=== PATIENT | female | born 1940 | race Caucasian/White ===

== ENCOUNTER → 2017-12-22 19:28 | Outpatient (CLI) | payer MEDICARE ==
[~2017-12-22 19:28] MED LIST: ALEVE220 MG PO; CRANBERRY 400 M1 TA1 PO; LINZESS145 MCG PO; MIRALAX17 GM PO; MULTIPLE VITAMI1 TA1 PO; NORVASC2.5 MG PO; PERCOCET 5-3251 TAB PO; PRAVACHOL20 MG PO; XALATAN 0.0052.5 ML EACH EYE
[2018-02-02 11:04] VITALS: BMI 28.9
== END | disposition home or self-care (01) ==
LOC: D.MAMMO 09:15
DX: Z12.31 Encounter for screening mammogram for malignant neoplasm of breast (principal)

== ENCOUNTER 2018-02-01 11:30 | Inpatient (IN) | payer MEDICARE ==
[~2018-02-01] VITALS: Ht 172.7 cm; Wt 86.4 kg
--- NOTE | ~2018-02-01 | OP ---
PATIENT NAME: SUJATA JO MEDICAL RECORD: [id number] :38 LOCATION:Mg D.1218 ADMISSION DATE:02/02/18 SURGEON: WILIAN HARTMAN MD DATE OF OPERATION: 02/02/2018 PREOPERATIVE DIAGNOSIS: Uterovaginal prolapse. POSTOPERATIVE DIAGNOSIS: Uterovaginal prolapse. PROCEDURE PERFORMED: 1. Diagnostic laparoscopy. 2. Laparoscopic assisted vaginal hysterectomy with bilateral salpingo-oophorectomy. 3. Vaginal vault suspension. 4. Cystoscopy. SURGEON: Wilian Hartman MD BACK PADDER: Jorge Boyle. ANESTHESIOLOGIST: Nasir Poe MD ANESTHESIA: General anesthetic with endotracheal intubation. FINDINGS: Uterus is unremarkable along with tubes and ovaries internally. The uterus completely prolapses beyond the vaginal introitus. Bladder mucosa was unremarkable and at the time of cystoscopy, good efflux from ureteral orifices. SPECIMENS: Uterus, tubes, and ovaries. SPECIMEN DISPOSITION: Pathology. ESTIMATED BLOOD LOSS: Less than or equal to 300 cc. FLUIDS: 1300 cc of lactated Ringer's. URINE OUTPUT: 75-100 cc of clear urine. COMPLICATIONS: None. DRAINS: Mondragon to gravity. 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 The patient has been counseled in regards to hysterectomy and need for vault suspension. The patient understands limitations and risk of procedure. DESCRIPTION OF PROCEDURE: After informed consent was assured, the patient was taken to the operating room where anesthetic was obtained without difficulty. The patient is now prepped and draped in the usual sterile fashion. The uterus is reduced with a sponge stick. Attention was directed to the abdomen where a trocar was inserted into the umbilicus and a pneumoperitoneum developed. Accessory ports were placed in the right and left lower quadrant. The patient was placed in Trendelenburg position. Bladder was drained. The bowel swept free of the pelvis. The right ovary was elevated and using coagulation cutter, the infundibulopelvic ligament is coagulated and . The dissection was OPERATIVE REPORT [id number] SUJATA JO carried out underneath the ovary across the round ligament and the bladder flap was developed to the midline. This is continued on the contralateral side. The left ovary now being elevated has its attachment to the infundibulopelvic ligament, coagulated, and . The dissection was carried out underneath the ovary across the round ligaments and the anterior leaf of the broad ligament was opened. The dissection of the bladder flap was carried out to the midline. Attention was now directed vaginally and after positioning the legs, speculum was introduced. The cervix was grasped with Black tenaculums and incised with Bovie cautery. The posterior cul-de-sac was entered sharply. The long-billed weighted speculum was introduced after the peritoneum is plicated to the mucosa. Using [place] clamps, the uterosacral ligaments were shortened and mobilized with scissors. A stitch was placed on both right and left uterosacral complexes. Attention was directed anteriorly where the dissection frees the bladder from the cervix and the anterior space was entered. The remaining portions of the broad ligament were clamped, cut, and tied and uterus along with tubes and ovaries were removed. The anterior peritoneum is attached to the vaginal mucosa with 3-0 Vicryl. Inspection revealed adequate hemostasis. A long Allis with the ligaments being palpated, long Allis is inserted and the uterosacral ligaments were grasped on left and right side of 3-4 cm from the vaginal opening. A complex of uterosacral tissue was built, thus is obtained by plicating the ligament to the midline with Ethibond. After this bundle of tissue was created, the vaginal cuff was closed in a horizontal fashion incorporating the vaginal mucosa to the ligament complex. In this way, there is apical support attached to the vaginal cuff. After closure of the vaginal cuff, cystoscopy has been performed and with the patient having received methylene blue, both ureteral orifices were easily identified. The vaginal mucosa is unremarkable and free of trauma. Mondragon catheter was inserted and bladder drained. The packing is now placed. Sponge, lap, and needle counts were correct x 2. As pneumoperitoneum is reestablished, inspection of the operative field reveals adequate hemostasis. The trocars were removed and the skin was reapproximated with a subcuticular stitch and Dermabond. TRANSINT:[id number] Voice Confirmation ID: [id number] DOCUMENT ID: [id number] WILIAN HARTMAN MD at 1158 CC: [id number] DICTATION DATE: 02/02/18 1015 INFORMATION TECHNOLOGY COORDINATOR: 02/02/18 1259 ADM IN [facility] [address] [place] [id number]
[2018-02-01] MEDS ORDERED: PRAVACHOL20 MG PO (11:44)
[2018-02-01] MEDS ORDERED: NORVASC2.5 MG PO (11:44)
[2018-02-01] MEDS ORDERED: CRANBERRY 400 M1 TA1 PO (11:45)
[2018-02-01] MEDS ORDERED: MULTIPLE VITAMI1 TA1 PO (11:45)
[2018-02-01] MEDS ORDERED: ALEVE220 MG PO (11:45)
[2018-02-01] MEDS ORDERED: MIRALAX17 GM PO (11:46)
[2018-02-01] MEDS ORDERED: XALATAN 0.0052.5 ML EACH EYE (11:46)
[2018-02-01] MEDS ORDERED: LINZESS145 MCG PO (11:46)
[2018-02-01 13:04] LABS: CALC OSMOLALITY 280 mosm/kg (275-300); CALCIUM 9.3 mg/dL (8.5-10.1); CARBON DIOXIDE 30.5 mmol/L (21.0-32.0); CHLORIDE - SERUM 103 mmol/L (98-107); CREATININE - SERUM 0.7 mg/dL (0.6-1.3); GLUCOSE 94 mg/dL (74-106); POTASSIUM - SERUM 4.6 mmol/L (3.5-5.1); SODIUM 140 mmol/L (136-145); UREA NITROGEN 19 mg/dL (7-18); eGFR NON AFRICAN AMERICAN 85 mL/min (90-120)
[2018-02-01 13:05] LABS: BASOPHILS 0.2 % (0-2); EOSINOPHILS 5.3 % (0-7); HEMATOCRIT 38.8 % (36.0-48.0); MCH 30.9 pg (26.0-34.0); MCHC 33.5 g/dL (31.0-37.0); MCV 92.2 fL (80.0-100.0); MEAN PLATELET VOLUME 10.8 fL (7.4-10.4); MONOCYTES 8.3 % (2-11); NEUTROPHILS 57.2 % (40-80); PLATELET COUNT 140 10x3/uL (130-400); RBC 4.21 10x6/uL (4.00-5.40); RDW 14.3 % (11.5-14.5); WBC 4.4 10x3/uL (4.8-10.8)
[2018-02-02] VITALS (15 sets, daily range): BP systolic 105–138; BP diastolic 55–84; Ht 172.7 cm; Wt 86.4 kg
[2018-02-03] VITALS: BP 95/51
[2018-02-03 04:15] VITALS: BP 118/59
[2018-02-03 06:18] LABS: HEMATOCRIT 32.3 % (36.0-48.0); HEMOGLOBIN 10.6 g/dL (12-16); MCH 30.8 pg (26.0-34.0); MCHC 32.8 g/dL (31.0-37.0); MCV 93.9 fL (80.0-100.0); MEAN PLATELET VOLUME 10.9 fL (7.4-10.4); RBC 3.44 10x6/uL (4.00-5.40); RDW 14.7 % (11.5-14.5); WBC 4.6 10x3/uL (4.8-10.8)
[2018-02-03 08:26] VITALS: BP 135/80
[2018-02-03 13:10] VITALS: BP 116/61
[2018-02-03] MEDS ORDERED: PERCOCET 5-3251 TAB PO (14:31)
== END 2018-02-03 15:00 | disposition home or self-care (01) | DRG 743 ==
LOC: D.WS 02-02 05:30 → D.SDCHOLD 02-02 05:30 → D.WS 02-02 11:24
PROVIDERS: Obstetrics & Gynecology
PROC: 0TJB8ZZ Inspection of Bladder, Via Natural or Artificial Opening Endoscopic (ICD-10-PCS; 2018-02-02)
PROC: 0UT9FZZ Resection of Uterus, Via Natural or Artificial Opening With Percutaneous Endoscopic Assistance (ICD-10-PCS; principal; 2018-02-02 07:30)
PROC: 0UT2FZZ Resection of Bilateral Ovaries, Via Natural or Artificial Opening With Percutaneous Endoscopic Assistance (ICD-10-PCS; 2018-02-02 07:30)
PROC: 0UT7FZZ Resection of Bilateral Fallopian Tubes, Via Natural or Artificial Opening With Percutaneous Endoscopic Assistance (ICD-10-PCS; 2018-02-02 07:30)
PROC: 0USG4ZZ Reposition Vagina, Percutaneous Endoscopic Approach (ICD-10-PCS; 2018-02-02 07:30)
DX: N81.4 Uterovaginal prolapse, unspecified (principal); I10 Essential (primary) hypertension

== ENCOUNTER → 2018-11-04 09:38 | Outpatient (CLI) | payer OTHER ==
[2018-02-02 11:04] VITALS: BMI 28.9
== END | disposition home or self-care (01) ==
LOC: D.RAD 09:38 → D.US 10:00
DX: R60.0 Localized edema (principal); Q67.7 Pectus carinatum

== ENCOUNTER → 2018-12-29 09:10 | Outpatient (CLI) | payer OTHER ==
[2018-02-02 11:04] VITALS: BMI 28.9
== END | disposition home or self-care (01) ==
LOC: D.HCCARDIO 12-23 09:30
PROVIDERS: ATTEND Internal Medicine Cardiovascular Disease
DX: R06.00 Dyspnea, unspecified (principal)

== ENCOUNTER 2019-01-24 10:47 | Outpatient (CLI) | payer OTHER ==
[~2019-01-24] VITALS: Ht 172.7 cm; Wt 84.1 kg
--- NOTE | ~2019-01-24 | HEMODYNAMI ---
PATIENT:SUJATA JO MEDICAL RECORD: [id number] : 38 LOCATION:[facility]CAT ADMISSION DATE: 01/24/19 Generatedon:01/24/201913:30 Patient name: SUJATA JO Patient #: [id number] SSN: D OB: 1940 Date of study: 01/24/2019 Page: Of Hemodynamic Procedure Report Patient Data Patient Demographics Procedure consent was obtained First Name: SUJATA Gender: Female Last Name: SANDRO : 1940 Middle Initial: H Age: 78 year(s) Patient #: [id number] Race: Unknown Additional ID: [id number] Contact details [facility] State: [place] City: [place] Zip code: [address] Past Medical History Allergies Allergen Reaction Date Comments Reported Other allergy 01/24/2019 Sulfa, Nitrofurantoin Admission Admission Data Admission Date: 01/24/2019 Admission Time: 10:47 Arrival Date: 01/24/2019 Arrival Time: 13:00 Admit Source: Other Insurance Payor: Private health insurance Height (in.): 68 BSA: 2 (m2) Height (cm.): 172.72 BMI: 29.04 (kg/m2) Weight (lbs.): 191 Weight (kg.): 86.64 Lab Results Lab Result Date: 01/24/2019 Lab Result Time: 11:15 Biochemistry Name Units Result Min Max BUN mg/dl 23 --(----)-* 7 18 Creatinine mg/dl 0.6 --(*---)-- 0.6 1.3 CBC Name Units Result Min Max Hematocrit % 39.3 -*(----)-- 42 54 Hemoglobin g/dl 13.3 -*(----)-- 13.5 17.5 Procedure Procedure Types Cath Procedure Diagnostic Procedure LHC LHC w/Coronaries Procedure Description Procedure Date Procedure Date: 01/24/2019 Procedure Start Time: 13:11 Procedure End Time: 13:25 Procedure Staff Name Function Lloyd Carrizales MD Performing Physician Curtis Almanza RN Nurse Kathy Monge RT Scrub Walt Nowak RT Monitor Procedure Data Cath Procedure Fluoroscopy Diagnostic fluoroscopy Total fluoroscopy Time: 2.5 time: 2.5 min min Diagnostic fluoroscopy Total fluoroscopy dose: 499 dose: 499 mGy mGy Contrast Material Contrast Material Type Amount (ml) Isovue 300 60 Entry Location Entry Primary Successful Side Size Upsize Upsize Entry Closure Melo ccessful Closure Location (Fr) 1 (Fr) 2 (Fr) Remarks Device Remarks Radial Right 6 Fr Mechanical artery Short Compression Estimated blood loss: 10 ml Diagnostic catheters Device Type Used For End Catheter Placement DIAGNOSTIC [place] 110cm 5 Procedure Fr catheter ([id number]) DIAGNOSTIC [place] 4.5 5Fr Procedure catheter ([id number]) Procedure Complications No complications Procedure Medications Medication Administration Route Dosage Oxygen etCO2 Nasal cannula 2 l/min Lidocaine 2% added to field 20 Heparin Flush Bag added to field 2 bags (1000units/500ml NS) 0.9% NaCl 100 ml/hr Versed I.V. 1 mg Fentanyl I.V. 50 mcg Radial Cocktail I.A. 1 syringe (Verapamil 2mg/Nitro 400mcg/Heparin 1500units) Versed I.V. 1 mg Fentanyl I.V. 50 mcg Versed I.V. 1 mg Hemodynamics Rest BSA: 2 (m2) HGB: 13.3 (g/dl) O2 Consumption: Estimated: 176 (ml/min) O2 Consumpt ion indexed: Estimated:88 (ml/min/m) Heart Rate: 65 (bpm) Pressure Samples Time Site Value (mmHg) Purpose Heart Use Rate(bpm) 13:13 LV 117/-6,3 Snapshot 74 13:14 AO 102/60(77) Pullback 71 13:14 LV 104/-7,0 Pullback 71 13:15 AO 96/69(81) Snapshot 77 Gradients Valve Time Site 1 Site 2 Mean SEP/DFP Peak To Heart Use (mmHg) (sec/min) Peak Rate (mmHg) (bpm) Aortic 13:14 LV AO 5 16 2 71 104/-7,0 102/60(77) Calculations Valve P-P Mean Valve Index Valve Source Name Gradient Area Flow (cm2) Aortic 2 5 2 5 Snapshots Pre Cath Intra NCS Post Cath Vital Signs Time Heart Resp SPO2 etCO2 NIBP (mmHg) Rhythm Pain Sedation Rate (ipm) (%) (mmHg) Status Level (bpm) 13:03:28 62 16 100 9.7 141/76(110) NSR 0 (11) 10(A) , No pain 13:07:45 68 18 94 23.2 127/78(99) NSR 0 (11) 10(A) , No pain 13:11:56 71 18 96 17.2 125/75(103) NSR 0 (11) 9(A) , No pain 13:16:12 73 16 95 24.7 117/60(97) NSR 0 (11) 9(A) , No pain 13:20:14 75 15 94 20 110/64(88) NSR 0 (11) 9(A) , No pain 13:24:24 77 14 97 19 126/71(91) NSR 0 (11) 10(A) , No pain Medications Time Medication Route Dose Verified Delivered Reason Notes Effectiveness by by 13:03:17 Oxygen etCO2 2 l/min Lloyd Buffie used for Nasal All Almanza RN procedure cannula 13:03:25 Lidocaine 2% added 20ml Lloyd Lloyd for local to vial All Carrizales MD anesthetic field 13:03:31 Heparin Flush added 2 bags Lloyd Lloyd used for Bag to All Carrizales MD procedure (1000units/500ml field NS) 13:03:41 0.9% NaCl 100 Lloyd Buffie Per ml/hr All Almanza RN physician 13:03:49 Versed I.V. 1 mg Lloyd Buffie for sedation All Almanza RN 13:03:55 Fentanyl I.V. 50 mcg Lloyd Buffie for sedation All Almanza RN 13:12:16 Versed I.V. 1 mg Lloyd Lloyd for sedation All Carrizales MD 13:12:20 Fentanyl I.V. 50 mcg Lloyd Lloyd for sedation All Carrizales MD 13:12:26 Radial Cocktail I.A. 1 Lloyd Lloyd for (Verapamil syringe All Carrizales MD vasodilation 2mg/Nitro 400mcg/Heparin 1500units) 13:16:42 Versed I.V. 1 mg Lloyd Lloyd for sedation All Carrizales MD Procedure Log Time Note 12:44:39 Diagnostic Cath Status : Elective 12:46:10 Curtis Almanza RN sent for patient. Start room use. 12:46:11 Time tracking: Regular hours (M-F 7:00 - 5:00) 12:46:15 Plan of Care:Hemodynamics will remain stable., Cardiac rhythm will remain stable., Comfort level will be maintained., Respiratory function will remain adequate., Patient/ family verbilizes understanding of procedure., Procedure tolerated without complication., Recovers from procedure without complications.. 12:47:29 Admit Source: Other 12:47:34 Arrival Date: 01/24/2019 1:00:00 PM 12:47:43 Insurance Payor : Private health insurance 12:48:02 Patient Height : 68 inches 12:48:04 Patient Weight : 191 lbs 12:49:50 Patient received from Pre/Post Procedure Room to CCL 2 Alert and oriented. Tansferred to table in Supine position. 12:49:52 Warm blankets applied, and meggan hugger turned on for patient comfort. 12:49:52 Correct patient and procedure confirmed by team. 12:49:54 Signed procedure consent form obtained from patient. 12:49:55 ECG and BP/O2 sat monitors applied to patient. 12:54:16 Lab Result : BUN 23 mg/dl 12:54:16 Lab Result : Hemoglobin 13.3 g/dl 12:54:16 Lab Result : Creatinine 0.6 mg/dl 12:54:16 Lab Result : Hematocrit 39.3 % 12:54:18 Lab results completed and on chart. 12:54:57 Baseline sample Acquired. 12:54:59 Rhythm: sinus rhythm 12:55:02 Full Disclosure recording started 12:55:14 H&P Date Dictated: 01/24/2019 Within 30 days and on chart., H&P Addendum completed by physician on day of procedure. (MUST COMPLETE FOR ALL OUTPATIENTS). 12:55:14 Pre-procedure instructions explained to patient. 12:55:15 Pre-op teaching completed and patient verbalized understanding. 12:55:16 Family in waiting room. 12:55:18 Patient NPO since Breakfast. 12:55:34 Patient allergic to Other allergySulfa, Nitrofurantoin 12:55:35 Is the patient allergic to Iodine/contrast media? No. 12:55:36 Is patient on blood thinner?No 12:55:38 Patient diabetic? No. 12:55:40 Previous problem with sedation/anesthesia? No ? 12:55:41 Snore? No 12:55:42 Sleep apnea? No 12:55:43 Deviated septum? No 12:55:43 Opens mouth fully? Yes 12:55:44 Sticks out tongue? Yes 12:55:48 Airway obstruction? No ? 12:55:51 Dentures? No ? 12:55:54 Pre procedure: right dorsailis pedis pulse 2+ Normal; easily identifiable; not easily obliterated 12:55:56 Modified Chuck's test Ulnar < 7 seconds 12:55:57 Patient pain scale 0/10 ?. 12:56:03 IV patent on arrival in left forearm with 0.9% NaCl at [facility]. 12:56:06 Right Radial & Right Groin area was prepped with chlora-prep and draped in sterile fashion 12:56:07 Alarms reviewed by R. N. 12:56:07 Sharps counted by scrub and verified by R.N. 12:56:09 Use device set Radial Dx or PCI 12:56:10 ACIST Syringe (06493) opened to sterile field. 12:56:10 Medline Cath Pack ([id number]) opened to sterile field. 12:56:11 Bag Decanter (2002S) opened to sterile field. 12:56:11 ACIST Hand Control (69799) opened to sterile field. 12:56:12 ACIST Manifold (12427) opened to sterile field. 12:56:12 Tegaderm 4 x 4 (1626W) opened to sterile field. 12:56:13 MBrace Wrist Support ([id number]) opened to sterile field. 12:56:14 DIAGNOSTIC WIRE .035 260cm J wire (949392) opened to sterile field. 12:56:14 SHEATH 6FR Slender (08-1060) opened to sterile field. 12:56:15 NEEDLE Cook 21G 4cm Radial (C88703) opened to sterile field. 12:56:23 Baseline sample Acquired. 13:02:22 Vital chart was started 13:02:29 --------ALL STOP TIME OUT------ 13:02:30 Final Timeout: patient, procedure, and site verified with staff and physician. All members of the team are in agreement. 13:02:32 Right Radial & Right Groin site verified by team. 13:02:38 Maximum allowable Isovue 370 dose 300ml. Physician notified. (300ml for normal creatinines. For patients with creatinine of 1.7 or higher multiply weight(kg) x 5 divided by creatinine.) 13:02:45 Fire Safety Assessment: A--An alcohol-based skin anteseptic being used preoperatively., C--Open oxygen or nitrous oxide is being used., D--An ESU, laser, or fiber-optic light is being used. 13:02:48 Physical assessment completed. ASA score P 2 - A patient with mild systemic disease as per Lloyd Carrizales MD. 13:02:51 Sedation plan: IV Moderate Sedation Medication:Versed, Fentanyl 13:03:17 Oxygen 2 l/min etCO2 Nasal cannula was administered by Curtis Almanza RN; used for procedure; 13:03:25 Lidocaine 2% 20ml vial added to field was administered by Lloyd Carrizales MD; for local anesthetic; 13:03:31 Heparin Flush Bag (1000units/500ml NS) 2 bags added to field was administered by Llyod Carrizales MD; used for procedure; 13:03:41 0.9% NaCl 100 ml/hr was administered by Curtis Almanza RN; Per physician; 13:03:49 Versed 1 mg I.V. was administered by Curtis Almanza RN; for sedation; 13:03:55 Fentanyl 50 mcg I.V. was administered by Curtis Almanza RN; for sedation; 13:11:32 Procedure started. 13:11:36 Local anesthetic to right radial artery with Lidocaine 2% by Lloyd Carrizales MD.INITIAL ACCESS ONLY 13:11:43 Zero performed for pressure channel P1 13:11:58 A 6 Fr Short sheath was inserted into the Right Radial artery 13:12:16 Versed 1 mg I.V. was administered by Lloyd Carrizales MD; for sedation; 13:12:20 Fentanyl 50 mcg I.V. was administered by Lloyd Carrizales MD; for sedation; 13:12:26 Radial Cocktail (Verapamil 2mg/Nitro 400mcg/Heparin 1500units) 1 syringe I.A. was administered by Lloyd Carrizales MD; for vasodilation; 13:12:40 A DIAGNOSTIC [place] 110cm 5 Fr catheter (079254) was advanced over the wire and used for Procedure. 13:13:40 LV angiography performed. 13:13:42 LV gram done using DUNBAR 13:14:07 EF : 50 % 13:14:18 LV hemodynamics recorded. 13:14:21 Injector settings: Ml/sec: 7, Volume: 15, 13:15:43 RCA angiography performed. 13:16:38 Catheter exchanged over wire. 13:16:42 Versed 1 mg I.V. was administered by Lloyd Carrizales MD; for sedation; 13:17:05 A DIAGNOSTIC [place] 4.5 5Fr catheter (927219) was advanced over the wire and used for Procedure. 13:18:09 LCA angiography performed. 13:20:40 Catheter removed. 13:20:42 TR BAND Standard ([id number]) opened to sterile field. 13:21:09 Sheath removed intact; hemostasis achieved with Mechanical Compression to the Right Radial artery. 13:21:11 Procedure ended.(Physican Out) 13:21:27 Fluoroscopy time 02.50 minutes. 13:21:31 Fluoroscopy dose: 499 mGy 13:21:31 Flurop Dose total: 499 13:21:35 Contrast amount:Isovue 300 60ml. 13:21:36 Sharps counted by scrub and verified by R.N. 13:21:37 Insertion/operative site no bleeding no hematoma. 13:21:43 TR band inflated with 12cc of air. 13:21:44 Post Procedure Pulses reassessed and unchanged 13:21:46 Post-procedure physical assessment completed. ASA score P 2 - A patient with mild systemic disease as per Lloyd Carrizales MD. 13:21:49 Post procedure rhythm: unchanged. 13:21:51 Estimated blood loss: 10 ml 13:22:58 Post procedure instruction explained to patient.Patient verbalizes understanding. 13:22:58 Patient needs reinforcement of post procedure teaching. 13:23:12 Procedure and supply charges have been captured, reviewed, submitted and are correct. 13:23:15 Procedure Complication : No complications 13:25:39 Vital chart was stopped 13:25:39 See physician's report for complete and final results. 13:25:46 Report given to Pre/Post Procedure Room. 13:25:48 Patient transfered to Pre/Post Procedure Room with Stretcher. 13:25:50 Procedure ended. 13:25:50 Full Disclosure recording stopped 13:25:55 End room use (Document Last) Device Usage Item Name Manufacture Quantity Catalog Hospital Part Current Minimal Lot# / Number Charge Number Stock Stock Serial# Code ACIST Acist 1 32286 [id number] 991228 [id number] 20 Syringe Medical (15025) Systems Inc Medline Medline 1 [id number] 431173 50320 700821 5 Cath Pack ([id number]) Bag Microtek 1 2001S 070297 76484 210246 5 Decanter Medical Inc. () ACIST Hand Acist 1 36580 361157 149360 572358 5 Control Medical (25933) Systems Inc ACIST Acist 1 22443 482995 435001 127612 5 Manifold Medical (88400) Systems Inc Tegaderm 4 3M 1 1626W 279823 749702 520677 5 x 4 (1626W) MBrace Advanced 1 140-0250-00 021959 78880 754029 5 Wrist Vascular Support Dynamics ([id number]) DIAGNOSTIC [facility] 1 210569 155901 825090 825686 30 WIRE .035 260cm J wire (474400) SHEATH 6FR Terumo 1 [id number] 567237 566494 829255 5 Slender (80-1060) NEEDLE Cook [employer] 1 D34522 311207 960566 542952 5 21G 4cm Radial (E35926) DIAGNOSTIC Terumo 1 40-5013 186752 611270 012511 5 [place] 110cm 5 Fr catheter (193694) DIAGNOSTIC Terumo 1 40-5012 317393 001622 580780 5 [place] 4.5 5Fr catheter (003352) TR BAND Terumo 1 [id number] 654660 455020 490502 40 Standard ([id number]) Signature Audit [place] Stage Time Signature Unsigned Intra-Procedure 01/24/2019 Walt Nowak 1:29:59 PM RT(R) Signatures Monitor : Walt Nowak RT Signature : Date : Time : [facility] [address] [place] [id number]
[2019-01-24 11:22] VITALS: BP 151/70; Ht 172.7 cm; Wt 84.1 kg
[2019-01-24 11:35] LABS: BASOPHILS 0.3 % (0-2); EOSINOPHILS 3.1 % (0-7); HEMATOCRIT 39.3 % (36.0-48.0); HEMOGLOBIN 13.3 g/dL (12-16); LYMPHOCYTES 32.6 % (15-50); MCH 30.9 pg (26.0-34.0); MCHC 33.8 g/dL (31.0-37.0); MCV 91.4 fL (80.0-100.0); MEAN PLATELET VOLUME 11.4 fL (7.4-10.4); MONOCYTES 9.4 % (2-11); NEUTROPHILS 54.6 % (40-80); PLATELET COUNT 107 10x3/uL (130-400); RDW 14.2 % (11.5-14.5); WBC 3.9 10x3/uL (4.8-10.8)
[2019-01-24 11:47] LABS: CALC OSMOLALITY 277 mosm/kg (275-300); CALCIUM 9.5 mg/dL (8.5-10.1); CHLORIDE - SERUM 102 mmol/L (98-107); CREATININE - SERUM 0.6 mg/dL (0.6-1.3); GLUCOSE 90 mg/dL (74-106); POTASSIUM - SERUM 4.3 mmol/L (3.5-5.1); SODIUM 137 mmol/L (136-145); UREA NITROGEN 23 mg/dL (7-18); eGFR NON AFRICAN AMERICAN > 90 mL/min (90-120)
--- NOTE | 2019-01-24 13:35 | NUR ---
PT RECEIVED VIA STRETCHER FROM ELECTRONIC ORGAN MECHANIC POST PROCEDURE FOR RECOVERY. PT AWAKE, DENIES ANY PAIN OR DISCOMFORT. TR BAND AND IMMOBILIZER TO R WRIST, DRESSING CDI NO BLEEDING OR HEMATOMA NOTED. ARM AND HAND PINK AND WARM, CAP REFILL BRISK. IV PATENT INFUSING VIA ORDERS. HR NSR RATE 66, BP 124/63, O2 SAT 99 ON ROOM AIR. CALL LIGHT IN REACH, AT BEDSIDE. COFFEE SERVED PER REQUEST.
--- NOTE | 2019-01-24 13:59 | NUR ---
TR BAND IN PLACE, DRESSING CDI NO BLEEDING OR SWELLING NOTED TO OR AROUND SITE. PT DENIES PAIN OR DISCOMFORT. TOLERATING FLUIDS W/O NAUSEA, SANDWICH SERVED PER REQUEST. VSS, CALL LIGHT IN REACH AND REMAINS AT BEDSIDE.
--- NOTE | 2019-01-24 14:30 | NUR ---
3 CC AIR REMOVED FROM TR BAND, SMALL AMOUNT OF BLEEDING NOTED SO REPLACED 2 CC AIR BLEEDING STOPPED. NO SWELLING NOTED. O2 REMOVED, O2 SAT 97 ON ROOM AIR. CALL LIGHT IN REACH
--- NOTE | 2019-01-24 14:53 | NUR ---
3CC AIR REMOVED FROM TR BAND, NO BLEEDING NOTED. PT RESTING COMFORTABLY, DENIES PAIN OR NEEDS. CALL LIGHT IN REACH.
--- NOTE | 2019-01-24 15:08 | NUR ---
3CC AIR REMOVED FROM TR BAND, NO BLEEDING OR SWELLING NOTED. ARM AND HAND PINK AND WARM, CAP REFILL BRISK. DENIES PAIN OR NEEDS
--- NOTE | 2019-01-24 15:19 | NUR ---
IV REMOVED W CATH INTACT, MONITORS REMOVED. DR BACA IN AND SPOKE WITH PT REGARDING PLAN OF CARE AND PROCEDURE RESULTS. PT UP TO DRESS FOR DISCHARGE.
--- NOTE | 2019-01-24 15:25 | NUR ---
DISCHARGE INSTRUCTIONS REVIEWED W PT AND , BOTH VERBALIZED UNDERSTANDING. TR BAND AND REMAINING AIR REMOVED, NO BLEEDING OR SWELLING NOTED. 2X2 AND TEGADERM DRESSING APPLIED.
--- NOTE | 2019-01-24 15:36 | NUR ---
PT DISCHARGED VIA WC TO PRIVATE VEHICLE WITH ALL BELONGINGS.
== END 2019-01-24 15:35 | disposition home or self-care (01) ==
LOC: D.CATH 10:47
PROVIDERS: ATTEND Internal Medicine Cardiovascular Disease
DX: I25.119 Atherosclerotic heart disease of native coronary artery with unspecified angina pectoris (principal); R94.30 Abnormal result of cardiovascular function study, unspecified; D69.6 Thrombocytopenia, unspecified; Z01.812 Encounter for preprocedural laboratory examination

== ENCOUNTER → 2019-02-13 16:21 | Outpatient (CLI) | payer OTHER ==
[2019-01-24 11:22] VITALS: BMI 28.1
== END | disposition home or self-care (01) ==
LOC: D.US 16:21
PROVIDERS: ATTEND Family Medicine
DX: E04.1 Nontoxic single thyroid nodule (principal)

== ENCOUNTER → 2019-04-19 07:47 | Outpatient (CLI) | payer OTHER ==
[2019-01-24 11:22] VITALS: BMI 28.1
== END | disposition home or self-care (01) ==
LOC: D.NM 03-27 09:00
PROVIDERS: ATTEND Family Medicine
DX: E04.1 Nontoxic single thyroid nodule (principal)

== ENCOUNTER → 2019-05-31 09:25 | Outpatient (CLI) | payer OTHER ==
[2019-01-24 11:22] VITALS: BMI 28.1
== END | disposition home or self-care (01) ==
LOC: D.US 09:25
PROVIDERS: ATTEND Surgery
DX: E04.1 Nontoxic single thyroid nodule (principal)

== ENCOUNTER → 2019-06-20 18:22 | Outpatient (CLI) | payer OTHER ==
[2019-01-24 11:22] VITALS: BMI 28.1
[2019-06-20 18:47] LABS: BASOPHILS 0.3 % (0-2); EOSINOPHILS 4.5 % (0-7); HEMATOCRIT 41.6 % (36.0-48.0); HEMOGLOBIN 13.7 g/dL (12-16); IMMATURE GRANULOCYTES 0.3 % (0-5); LYMPHOCYTES 27.2 % (15-50); MCH 31.4 pg (26.0-34.0); MCHC 32.9 g/dL (31.0-37.0); MCV 95.4 fL (80.0-100.0); MONOCYTES 11.1 % (2-11); NEUTROPHILS 56.6 % (40-80); RBC 4.36 10x6/uL (4.00-5.40); RDW 14.4 % (11.5-14.5); WBC 3.8 10x3/uL (4.8-10.8)
[2019-06-20 19:15] LABS: PLATELET COUNT 134 10x3/uL (130-400)
== END | disposition home or self-care (01) ==
LOC: D.LABREF 18:22
PROVIDERS: ATTEND Internal Medicine Cardiovascular Disease
DX: R06.02 Shortness of breath (principal); R53.83 Other fatigue

== ENCOUNTER → 2019-11-22 07:57 | Outpatient (CLI) | payer OTHER ==
[2019-10-15 11:48] VITALS: BMI 28.3
[~2019-11-22 07:57] MED LIST changes: +ALPHAGAN P15 ML EACH EYE; +COREG 3.1253.125 MG PO; +OMEGA-3100 MG; +PACERONE200 MG PO; +PLAVIX75 MG PO
== END | disposition home or self-care (01) ==
LOC: D.US 07:57
PROVIDERS: ATTEND Internal Medicine Cardiovascular Disease
DX: R42 Dizziness and giddiness (principal)